=== PATIENT | male | born 1965 | race Caucasian/White ===

== ENCOUNTER 2019-05-15 15:26 | Outpatient (REF) | payer BC, SELFPAY ==
[2019-05-17 10:59] LABS: Lyme Ab w Rflx to Lyme Confirm Negative
[2019-05-17 22:27] LABS: Anaplasma phagocytophilum Negative (Negative); B. miyamotoi PCR Negative (Negative); Babesia divergens/MO-1 Negative (Negative); Babesia duncani Negative (Negative); Babesia microti Negative (Negative); Ehrlichia chaffeensis Negative (Negative); Ehrlichia ewingii/canis Negative (Negative); Ehrlichia muris eauclairensis Negative (Negative)
== END 2019-05-15 15:46 ==
LOC: LBN 15:26
PROVIDERS: PCP Family Medicine; Visit Provider Family Medicine
DX: R50.9 Fever, unspecified (principal)
CPT/HCPCS: 87798; 86618

== ENCOUNTER 2020-12-15 03:31 | Outpatient (CLI) | payer OTHER, SELFPAY ==
[2020-12-15 09:51] LABS: ALT 36 U/L (16-63); AST 22 U/L (15-37); Alkaline Phosphatase 79 U/L (46-116); Anion Gap 8.1 mmol/L (3-11); BUN 8 mg/dL (7-18); CO2 27.9 mmol/L (21.0-32.0); Calcium 8.8 mg/dL (8.5-10.1); Calculated LDL 94 mg/dL (<100); Chloride 104 mmol/L (98-107); Cholesterol 161 mg/dL (<200); Glucose 117 mg/dL (74-106); HDL Cholesterol 46 mg/dL (40-60); Potassium 4.7 mmol/L (3.5-5.1); Sodium 140 mmol/L (136-145); Total Protein 6.7 g/dL (6.4-8.2); Triglyceride 105 mg/dL (<150)
== END 2020-12-15 03:32 | disposition home or self-care (01) ==
LOC: LBO 03:31
PROVIDERS: PCP Family Medicine; Visit Provider Family Medicine
DX: I10 Essential (primary) hypertension (principal)
CPT/HCPCS: 36415; 80053; 80061

== ENCOUNTER 2021-10-05 09:10 | Outpatient (CLI) | payer OTHER, SELFPAY ==
--- NOTE | 2021-10-05 09:00 | RT.EKG_ITS ---
APPROVED REPORT Exam: Resting ECG Reason for Exam: feeling of heart flutter Patient Location: O HR:66 bpm ECG Measurements Heart Rate 66 AXIS FL 143 P 43 QRSd 90 QRS 10 QT 381 T 40 QTc 401 Conclusion Sinus rhythm...normal P axis, V-rate 60- 99 Normal Electrocardiogram
== END 2021-10-05 09:11 | disposition home or self-care (01) ==
LOC: DI.KIM 09:10
PROVIDERS: PCP Family Medicine; Visit Provider Family Medicine
DX: I49.8 Other specified cardiac arrhythmias (principal)
CPT/HCPCS: 93010

== ENCOUNTER 2021-10-07 01:50 | Outpatient (RCR) | payer OTHER, SELFPAY ==
--- NOTE | 2021-10-07 08:00 | HOLTER_ITS ---
APPROVED REPORT Conclusion This is a 48-hour Holter monitor ordered for palpitations Predominant rhythm was sinus with an average heart rate of 64. Minimum was 45, maximum 117 There were very rare ventricular ectopic beats There were very rare atrial premature beats There was no atrial fibrillation, no high-grade AV block, no pauses greater than 3 seconds Patient symptoms appear to correspond to atrial and ventricular ectopics
== END 2021-10-29 23:59 | disposition home or self-care (01) ==
LOC: RT 01:50
PROVIDERS: PCP Family Medicine; Visit Provider Family Medicine
DX: R00.2 Palpitations (principal)
CPT/HCPCS: 93246; 93225; 93226

== ENCOUNTER 2021-10-30 15:21 | Outpatient (CLI) | payer OTHER, SELFPAY ==
--- NOTE | 2021-10-30 15:15 | RT.EKG_ITS ---
APPROVED REPORT Exam: Resting ECG Reason for Exam: Heart palpitations Patient Location: O HR:72 bpm ECG Measurements Heart Rate 72 AXIS [place] 146 P 47 QRSd 85 QRS 17 QT 371 T 49 QTc 405 Conclusion Sinus rhythm...normal P axis, V-rate 60- 99 Normal Electrocardiogram
== END 2021-10-30 15:22 | disposition home or self-care (01) ==
LOC: DI.KIM 15:21
PROVIDERS: PCP Family Medicine; Visit Provider Family Medicine
DX: R00.2 Palpitations (principal)
CPT/HCPCS: 93010